=== PATIENT | female | born 1980 | race Two or more races ===

== ENCOUNTER 2021-07-03 19:00 | Emergency (ER) | payer MEDICAID ==
[~2021-07-03] VITALS: Ht 165.1 cm; Wt 127.9 kg
[2021-07-03] MEDS ORDERED: MONT10TA22 PO (19:12)
[2021-07-03] MEDS ORDERED: HYDR-4076 PO (19:12)
[2021-07-03] MEDS ORDERED: BENAZEPRIL HCL 10 MG TABLET ONE (19:25)
[2021-07-03] MEDS ORDERED: BENAZEPRIL HCL 10 MG TABLET PO ONE (19:30)
[2021-07-03 19:32] VITALS: BP 147/105
[2021-07-03] MEDS ORDERED: BENA20TA9 PO (19:56)
--- NOTE | 2021-07-03 20:10 | NUR ---
Patient discharged to home in stable condition. Rx and Written and verbal after care instructions given. Patient verbalizes understanding of instruction.
== END 2021-07-03 20:13 | disposition home or self-care (01) ==
LOC: ER 19:00
DX: I10 Essential (primary) hypertension (principal); J45.909 Unspecified asthma, uncomplicated; Z98.890 Other specified postprocedural states; Z79.899 Other long term (current) drug therapy